=== PATIENT | female | born 1980 | race Two or more races ===

== ENCOUNTER 2017-02-05 11:03 | Emergency (ER) | payer OTHER ==
[2017-02-05 11:44] VITALS: TEMP 98.9; BMI 28.2
[2017-02-05] MEDS ORDERED: KETOROLAC TROMETHAMINE 30 MG/1 ML VIAL IVPUSH ONE (12:02)
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
[2017-02-05] MEDS ORDERED: KETOROLAC TROMETHAMINE 30 MG/1 ML VIAL ONE (12:16)
[2017-02-05 12:34] LABS: BASOPHIL 1.2 % (0-2.0); EOSINOPHIL 1.4 % (0-4.5); MCH 28.7 pg (25.7-33.7); MCHC 33.3 g/dl (32.0-36.0); MEAN CELL VOLUME 86.3 fl (80-96); MEAN PLT VOLUME 7.7 fl (7.5-11.1); NEUTROPHILS 73.5 % (42.8-82.8); PLATELET COUNT 190 K/MM3 (134-434); RDW 14.2 % (11.6-15.6); WHITE BLOOD COUNT 7.1 K/mm3 (4.0-10.0)
[2017-02-05 14:15] LABS: ALBUMIN 3.9 g/dl (3.4-5.0); ANION GAP 12 (8-16); CALCIUM 8.3 mg/dL (8.5-10.1); CO2 26 mmol/L (21-32); COCKROFT - GAULT 202.4445; CREATININE 0.6 mg/dL (0.55-1.02); GLUCOSE,RANDOM 68 mg/dL (74-106); SGOT/AST 16 U/L (15-37); SGPT/ALT 17 U/L (12-78)
[2017-02-05 14:17] LABS: ALK PHOS 57 U/L (45-117); BILIRUBIN,TOTAL 0.7 mg/dL (0.2-1.0); TOT PROT 6.5 g/dl (6.4-8.2)
[2017-02-05] MEDS ORDERED: OSELTAMIVIR PHOSPHATE 6 MG/1 ML - 60ML BOTTLE PO ONE (15:23)
[2017-02-05 16:35] VITALS: BP 121/66; PULSE 84
== END 2017-02-05 16:35 | disposition home or self-care (01) ==
LOC: JER 11:03
PROC: 3E0233Z Introduction of Anti-inflammatory into Muscle, Percutaneous Approach (ICD-10-PCS; principal; 2017-02-05)
DX: S00.83XA Contusion of other part of head, initial encounter (principal); S20.212A Contusion of left front wall of thorax, initial encounter; S80.02XA Contusion of left knee, initial encounter; S80.01XA Contusion of right knee, initial encounter; Y04.2XXA Assault by strike against or bumped into by another person, initial encounter; Y93.89 Activity, other specified; Y92.038 Other place in apartment as the place of occurrence of the external cause; Y07.03 Male partner, perpetrator of maltreatment and neglect; I10 Essential (primary) hypertension; K21.9 Gastro-esophageal reflux disease without esophagitis
CPT/HCPCS: 36415; 71020-TC; 71260-TC; 74177-TC; 80053; 84703; 85025; 96374; 99284-25; G9019

== ENCOUNTER 2018-09-19 03:42 | Emergency (ER) | payer OTHER ==
[2018-09-19 04:06] VITALS: TEMP 98.1; BMI 30.9
[2018-09-19] MEDS ORDERED: SODIUM CHLORIDE 1,000 ML IV STA (04:08)
--- NOTE | 2018-09-19 04:08 | PDOC ---
History of Present Illness - General Chief Complaint: Pain, Acute Stated Complaint: ABD PAIN Time Seen by Provider: 09/19/18 03:50 History Source: Patient Exam Limitations: No Limitations - History of Present Illness Travel History: No Initial Comments: 09/19/18 06:55 Best Contact: PCP:DR. Sanjay Busch Pmhx:HTN Pshx: 2013: Gastric sleeve, Hiatal hernia repair x5/latest in Jul 2018 Allergies: Lisinopril/rash FH:0 Social Hx: Cigarettes/ 0 Alcohol/ 0 Drugs/0 LMP:08/30/2018 38-year-old female with a history of morbid obesity who underwent gastric sleeve 5 years ago and had 5 attempts of hiatal hernia repair/latest one July 2018 presents to the ER complaining of global abdominal discomfort 3 days with some nausea. Patient states her last bowel movement was 24 hours ago and she believes it was nonbilious/nonbloody diarrhea. Patient states she's been anorexic 2 days because she is afraid the pain will increase after eating. The pain is described as 9/10 sharp nonradiating intermittent discomfort which is alleviated minimally when she self massages her abdomen. The pain is exacerbated on movement and touch. Patient denies fever, chills, headache, dizziness, lightheadedness, facial pains, neck pain/stiffness, back pains, chest pain, shortness of breath, flank pains, urinary symptoms: Frequency /urgency/hesitancy, hematuria, extremity numbness or tingling sensation. Past History - Past Medical History Allergies/Adverse Reactions: Allergies Allergy/AdvReac Type Severity Reaction Status Date / Time lisinopril Allergy Hives Verified 09/19/18 06:20 Home Medications: Ambulatory Orders Pantoprazole Sodium [Protonix -] 40 mg PO DAILY 01/31/14 Anemia: No Asthma: No Cancer: No Cardiac Disorders: No CVA: No COPD: No CHF: No Dementia: No Diabetes: No GI Disorders: Yes (gerd) Disorders: No HTN: Yes Hypercholesterolemia: No Liver Disease: No Seizures: No Thyroid Disease: No - Surgical History Abdominal Surgery: Yes (gastric sleeve) Cholecystectomy: Yes - Reproductive History Cervical CA: Yes Ectopic : Yes Polycystic Ovaries: Yes - Suicide/Smoking/Psychosocial Hx Smoking History: Current some day smoker Have you smoked in the past 12 months: No Number of Cigarettes Smoked Daily: 2 Information on smoking cessation initiated: No Hx Alcohol Use: Yes Drug/Substance Use Hx: No Substance Use Type: None Hx Substance Use Treatment: No Review of Systems - Review of Systems Able to Perform ROS?: Yes Comments:: 09/19/18 06:58 CONSTITUTIONAL: Absent: fever, chills, diaphoresis, generalized weakness, malaise, loss of appetite HEENT: Absent: rhinorrhea, nasal congestion, throat pain, throat swelling, difficulty swallowing, mouth swelling, ear pain, eye pain, visual Changes CARDIOVASCULAR: Absent: chest pain, loss of consciousness, palpitations, irregular heart rate, peripheral edema RESPIRATORY: Absent: cough, shortness of breath, dyspnea with exertion, orthopnea, wheezing, stridor, hemoptysis GASTROINTESTINAL: +Diffuse abd pain Absent: abdominal distension, nausea, vomiting, diarrhea, constipation, melena , hematochezia GENITOURINARY: Absent: dysuria, frequency, urgency, hesitancy, hematuria, flank pain, genital pain MUSCULOSKELETAL: Absent: myalgia, arthralgia, joint swelling SKIN: Absent: rash, itching, pallor HEMATOLOGIC/IMMUNOLOGIC: Absent: easy bleeding, easy bruising, lymphadenopathy, frequent infections ENDOCRINE: Absent: unexplained weight gain, unexplained weight loss, heat intolerance, cold intolerance NEUROLOGIC: Absent: headache, focal weakness or paresthesias, dizziness, unsteady gait, seizure, mental status changes, bladder or bowel incontinence Is the patient limited Vietnamese proficient: No *Physical Exam - Vital Signs Last Vital Signs Temp Pulse Resp BP Pulse Ox 98.1 F 112 H 18 148/98 100 09/19/18 04:01 09/19/18 04:01 09/19/18 04:01 09/19/18 04:01 09/19/18 04:01 - Physical Exam Comments: 09/19/18 06:59 GENERAL: Well developed, well nourished. Awake and alert. No acute distress. HEENT: Normocephalic, atraumatic. PERRLA, EOMI. No conjunctival pallor. Sclera are non- icteric. Moist mucous membranes. Oropharynx is clear. NECK: Supple. Full ROM. No JVD. Carotid pulses 2+ and symmetric, without bruits. No thyromegaly. No lymphadenopathy. CARDIOVASCULAR: Regular rate and rhythm. No murmurs, rubs, or gallops. Distal pulses are 2+ and symmetric. PULMONARY: No evidence of respiratory distress. Lungs clear to auscultation bilaterally. No wheezing, rales or rhonchi. ABDOMINAL: Diffuse abd pain on palp Soft. Non-distended. No rebound or guarding. No organomegaly. Normoactive bowel sounds. MUSCULOSKELETAL Normal range of motion at all joints. No bony deformities or tenderness. No CVA tenderness. EXTREMITIES: No cyanosis. No clubbing. No edema. No calf tenderness. SKIN: Warm and dry. Normal capillary refill. No rashes. No jaundice. Moderate Sedation - Procedure Monitoring Vital Signs: Procedure Monitoring Vital Signs Temperature 98.1 F 09/19/18 04:01 Pulse Rate 112 H 09/19/18 04:01 Respiratory Rate 18 09/19/18 04:01 Blood Pressure 148/98 09/19/18 04:01 O2 Sat by Pulse Oximetry (%) 100 09/19/18 04:01 ED Treatment Course - LABORATORY CBC & Chemistry Diagram: 09/19/18 04:04 09/19/18 04:04 - RADIOLOGY Radiograph Interpretation: 09/19/18 07:00 Ct abd/pelvis po/iv contrast: Progress Note - Progress Note Progress Note: 0600hrs: awaiting CT scan 0658hrs: still awaiting Ct scan 0700hrs: Signed out to DEVON Zarco *DC/Admit/Observation/Transfer Diagnosis at time of Disposition: Abdominal pain Qualifiers: Abdominal location: generalized Qualified Code(s): R10.84 - Generalized abdominal pain - Discharge Dispostion Disposition: HOME Condition at time of disposition: Fair - Referrals Referrals: Jordan Strickland MD [Staff Physician] - - Patient Instructions Printed Discharge Instructions: DI for Abdominal Pain-Adult Additional Instructions: You were evaluated for your abdominal pain today Your CT scan and lab work was normal today Eat a bland diet and avoid dairy until your symptoms resolve A heating pad on your stomach may help with the gas Follow up with your primary care doctor and GI doctor this week Return to the ED for worsening pain, fever, vomiting, or if you have any changes in your symptoms - Post Discharge Activity Forms/Work/School Notes: Back to Work
[2018-09-19 04:27] LABS: EOS % 4.2 % (0-4.5); HEMATOCRIT 37.5 % (32.4-45.2); HEMOGLOBIN 13.1 GM/dL (10.7-15.3); LYMPH % 41.5 % (8-40); MCH 29.3 pg (25.7-33.7); MEAN CELL VOLUME 83.9 fl (80-96); MEAN PLT VOLUME 7.4 fl (7.5-11.1); MONO % 4.2 % (3.8-10.2); NEUT % 49.1 % (42.8-82.8); PLATELET COUNT 228 K/MM3 (134-434); RBC 4.47 M/mm3 (3.60-5.2); RDW 14.5 % (11.6-15.6)
[2018-09-19 04:30] LABS: URINE APPEARANCE CLEAR; URINE BILIRUBIN NEGATIVE (<2.0 mg/dL); URINE COLOR COLORLESS; URINE GLUCOSE (UA) NEGATIVE (NEGATIVE); URINE KETONE NEGATIVE (NEGATIVE); URINE LEUK ESTERASE NEGATIVE (NEGATIVE); URINE NITRITE NEGATIVE (NEGATIVE); URINE PROTEIN NEGATIVE (NEGATIVE); URINE UROBILINOGEN NEGATIVE mg/dL (0.2-1.0)
[2018-09-19 04:31] LABS: HCG,QUALITATIVE URINE Negative
[2018-09-19] MEDS ORDERED: ONDANSETRON 4 MG/2 ML VIAL IVPUSH ONE (04:35)
[2018-09-19] MEDS ORDERED: ONDANSETRON 4 MG/2 ML VIAL ONE (04:39)
[2018-09-19 04:50] LABS: ALBUMIN 3.7 g/dl (3.4-5.0); ALK PHOS 80 U/L (45-117); ANION GAP 9 MMOL/L (8-16); BILIRUBIN,TOTAL 0.5 mg/dL (0.2-1); BLOOD UREA NITROGEN 5 mg/dL (7-18); CALCIUM 8.8 mg/dL (8.5-10.1); CHLORIDE 108 mmol/L (98-107); CO2 26 mmol/L (21-32); CREATININE 0.6 mg/dL (0.55-1.3); GLUCOSE,RANDOM 100 mg/dL (74-106); LIPASE 205 U/L (73-393); POTASSIUM 3.7 mmol/L (3.5-5.1); SGOT/AST 14 U/L (15-37); SGPT/ALT 16 U/L (13-61); SODIUM 143 mmol/L (136-145); TOT PROT 7.2 g/dl (6.4-8.2)
--- NOTE | 2018-09-19 07:12 | PDOC ---
*Physical Exam - Vital Signs Last Vital Signs Temp Pulse Resp BP Pulse Ox 98.1 F 112 H 18 148/98 100 09/19/18 04:01 09/19/18 04:01 09/19/18 04:01 09/19/18 04:01 09/19/18 04:01 - Physical Exam General Appearance: Yes: Nourished, Appropriately Dressed. No: Apparent Distress Respiratory/Chest: positive: Lungs Clear, Normal Breath Sounds. negative: Respiratory Distress, Accessory Muscle Use, Rhonchi, Stridor, Wheezing Cardiovascular: positive: Regular Rhythm, Regular Rate, S1, S2 (present). negative: Murmur Gastrointestinal/Abdominal: positive: Normal Bowel Sounds, Flat, Soft. negative : Tender ED Treatment Course - LABORATORY CBC & Chemistry Diagram: 09/19/18 04:04 09/19/18 04:04 - ADDITIONAL ORDERS Additional order review: Laboratory Results 09/19/18 09/19/18 04:04 04:04 Sodium 143 Potassium 3.7 Chloride 108 H Carbon Dioxide 26 Anion Gap 9 BUN 5 L Creatinine 0.6 Creat Clearance w eGFR > 60 Random Glucose 100 Calcium 8.8 Total Bilirubin 0.5 AST 14 L ALT 16 Alkaline Phosphatase 80 Total Protein 7.2 Albumin 3.7 Lipase 205 Urine Color Colorless Urine Appearance Clear Urine pH 7.0 Ur Specific [place] 1.002 L Urine Protein Negative Urine Glucose (UA) Negative Urine Ketones Negative Urine Blood Negative Urine Nitrite Negative Urine Bilirubin Negative Urine Urobilinogen Negative Ur Leukocyte Esterase Negative Urine HCG, Qual Negative 09/19/18 04:04 RBC 4.47 MCV 83.9 MCHC 35.0 RDW 14.5 MPV 7.4 L Neutrophils % 49.1 D Lymphocytes % 41.5 H D Monocytes % 4.2 Eosinophils % 4.2 D Basophils % 1.0 - Medications Given in the ED: ED Medications Discontinued Medications Generic Name Dose Route Start Last Admin Trade Name Freq PRN Reason Stop Dose Admin Sodium Chloride 1,000 mls @ 1,000 mls/hr 09/19/18 04:08 09/19/18 04:47 Normal Saline - IV 09/19/18 05:07 1,000 mls/hr ASDIR STA Administration Ondansetron HCl 4 mg 09/19/18 04:35 09/19/18 04:48 Zofran Injection IVPUSH 09/19/18 04:36 4 mg ONCE ONE Administration Medical Decision Making - Medical Decision Making 09/19/18 13:41 Delay with dc because of imaging prosthodontist/radiology read. Read shows a small umbilical hernia in the mesh from her previous surgery, however no acute patholoy. Pt reports that her symptoms have improved since being in the ED. Repeat abdominal exam with less pain than previous exam. No pain over the umbilicus. Probably gas. Will dc home at this time. Strict return precautions given. Pt understands all dc instructions and questions were answered I discussed the physical exam findings, ancillary test results and final diagnoses with the patient. I answered all of the patient's questions. The patient was satisfied with the care received and felt comfortable with the discharge plan and treatment plan. The Patient agrees to follow up with the primary care physician/specialist within 24-72 hours. Return precautions were given. *DC/Admit/Observation/Transfer Diagnosis at time of Disposition: Abdominal pain Qualifiers: Abdominal location: generalized Qualified Code(s): R10.84 - Generalized abdominal pain - Discharge Dispostion Disposition: HOME Condition at time of disposition: Fair Decision to Admit order: No - Referrals Referrals: Jordan Strickland MD [Staff Physician] - - Patient Instructions Printed Discharge Instructions: DI for Abdominal Pain-Adult Additional Instructions: You were evaluated for your abdominal pain today Your CT scan and lab work was normal today Eat a bland diet and avoid dairy until your symptoms resolve A heating pad on your stomach may help with the gas Follow up with your primary care doctor and GI doctor this week Return to the ED for worsening pain, fever, vomiting, or if you have any changes in your symptoms - Post Discharge Activity Forms/Work/School Notes: Back to Work
[2018-09-19] MEDS ORDERED: FAMOTIDINE 20 MG/50 ML IVPB 20 MG/50 ML MG IVPB ONE ×2 (10:36→11:00)
[2018-09-19 14:20] VITALS: BP 133/90; PULSE 72
== END 2018-09-19 14:20 | disposition home or self-care (01) ==
LOC: JER 03:42
PROC: 3E033GC Introduction of Other Therapeutic Substance into Peripheral Vein, Percutaneous Approach (ICD-10-PCS; principal; 2018-09-19)
PROC: 3E0337Z Introduction of Electrolytic and Water Balance Substance into Peripheral Vein, Percutaneous Approach (ICD-10-PCS; 2018-09-19)
DX: R10.84 Generalized abdominal pain (principal); Z98.84 Bariatric surgery status; F17.210 Nicotine dependence, cigarettes, uncomplicated; I10 Essential (primary) hypertension; K21.9 Gastro-esophageal reflux disease without esophagitis
CPT/HCPCS: 36415; 74177-TC; 80053; 81003; 83690; 84703; 85025; 99282-25; J7030

== ENCOUNTER 2019-06-19 08:35 | Emergency (ER) | payer OTHER ==
[2019-06-19 08:42] VITALS: BMI 31.6
--- NOTE | 2019-06-19 09:22 | PDOC ---
History of Present Illness - General Chief Complaint: Shoulder Dislocation Stated Complaint: FALL Time Seen by Provider: 06/19/19 08:44 History Source: Patient Exam Limitations: No Limitations - History of Present Illness Initial Comments: 06/19/19 10:00 38-year-old female presents the ED with status post fall last night presents to ED with left shoulder pain upon awakening this morning. Patient states unsure how she fell because she was intoxicated but denies previous injury to affected area or LOC . Patient states took nothing for the pain and decided to come to the ER for further evaluation. Is this a multiple visit Asthma Patient?: No Timing/Duration: 4-6 hours Severity: mild Associated Symptoms: reports: denies symptoms Past History - Travel Traveled outside of the country in the last 30 days: No Close contact w/someone who was outside of country & ill: No - Past Medical History Allergies/Adverse Reactions: Allergies Allergy/AdvReac Type Severity Reaction Status Date / Time lisinopril Allergy Hives Verified 06/19/19 08:43 Home Medications: Ambulatory Orders Pantoprazole Sodium [Protonix -] 40 mg PO DAILY 01/31/14 Cyclobenzaprine HCl [Flexeril -] 5 mg PO TID PRN #12 tablet 06/19/19 Oxycodone HCl/Acetaminophen [Percocet 5-325 mg Tablet] 1 - 2 tab PO Q6H PRN #12 tab MDD 4 06/19/19 Anemia: No Asthma: No Cancer: No Cardiac Disorders: No CVA: No COPD: No CHF: No Dementia: No Diabetes: No GI Disorders: Yes (gerd) Disorders: No HTN: Yes Hypercholesterolemia: No Liver Disease: No Seizures: No Thyroid Disease: No - Surgical History Abdominal Surgery: Yes (gastric sleeve) Cholecystectomy: Yes - Reproductive History Cervical CA: Yes Ectopic : Yes Polycystic Ovaries: Yes - Immunization History Immunization Up to Date: Yes - Suicide/Smoking/Psychosocial Hx Smoking History: Current every day smoker Have you smoked in the past 12 months: No Number of Cigarettes Smoked Daily: 1 Information on smoking cessation initiated: No Hx Alcohol Use: Yes Drug/Substance Use Hx: No Substance Use Type: None Hx Substance Use Treatment: No Patient Lives Alone: No Lives with/in: spouse/SO Review of Systems - Review of Systems Able to Perform ROS?: Yes Constitutional: No: Symptoms Reported HEENTM: No: Symptoms Reported Respiratory: No: Symptoms reported Cardiac (ROS): No: Symptoms Reported ABD/GI: No: Symptoms Reported Musculoskeletal: Yes: Joint Pain (left shoulder), Muscle Pain (left neck/upper back) Integumentary: No: Symptoms Reported Neurological: No: Symptoms reported, Numbness, Tingling, Weakness, Dizziness Endocrine: No: Symptoms Reported Hematologic/Lymphatic: No: Symptoms Reported *Physical Exam - Vital Signs Last Vital Signs Temp Pulse Resp BP Pulse Ox 98.4 F 92 H 16 131/108 H 99 06/19/19 08:39 06/19/19 08:39 06/19/19 08:39 06/19/19 08:39 06/19/19 08:39 - Physical Exam General Appearance: Yes: Nourished, Appropriately Dressed, Alcohol on Breath. No: Apparent Distress HEENT: positive: EFRA Neck: positive: Supple, Tender lateral (rt trapezius) Respiratory/Chest: positive: Lungs Clear, Normal Breath Sounds. negative: Chest Tender, Respiratory Distress, Accessory Muscle Use Cardiovascular: positive: Regular Rhythm, Regular Rate. negative: Murmur Gastrointestinal/Abdominal: positive: Soft. negative: Tenderness Musculoskeletal: negative: CVA Tenderness, Vertebral Tenderness Extremity: positive: Normal Inspection, Tender (genaralized over left shoulder/ trapezius). negative: Normal Range of Motion Integumentary: positive: Normal Color, Warm, Moist Neurologic: positive: Motor Strength 5/5 (left hand grasp) ED Treatment Course - ADDITIONAL ORDERS Additional order review: Laboratory Results 06/19/19 08:55 Urine HCG, Qual Negative - RADIOLOGY Radiology Studies Ordered: Category Date Time Status SHOULDER-LEFT [RAD] Stat Radiology 06/19/19 08:44 Ordered Medical Decision Making - Medical Decision Making 06/19/19 09:22 All left shoulder pain after falling at around 2 AM this morning patient is intoxicated and went to bed shortly after falling but awoke with discomfort this a.m. and inability to move left arm Exam: Patient with generalized tenderness over the left shoulder and left trapezius Plan: Urine , morphine and shoulder x-ray ordered 06/19/19 09:43 Laboratory Tests 06/19/19 08:55 Urine HCG, Qual Negative 06/19/19 11:06 Shoulder x-ray shows a light bulb appearance to the humeral head which could indicate a dislocation. Because of limited motion limitations, further imaging was CT is suggested. 06/19/19 12:07 Patient otherwise comfortable. Sling in place. Awaiting CT results 06/19/19 12:20 CT of upper extremity shows no dislocation or fracture noted. *DC/Admit/Observation/Transfer Diagnosis at time of Disposition: Shoulder injury - Discharge Dispostion Disposition: HOME Condition at time of disposition: Improved - Prescriptions Prescriptions: Cyclobenzaprine HCl [Flexeril -] 5 mg PO TID PRN #12 tablet PRN Reason: Back Pain Oxycodone HCl/Acetaminophen [Percocet 5-325 mg Tablet] 1 - 2 tab PO Q6H PRN #12 tab MDD 4 PRN Reason: Pain - Referrals Referrals: Sanjay Busch MD [Primary Care Provider] - Gage Chong MD [Staff Physician] - - Patient Instructions Printed Discharge Instructions: How to Use a Sling, DI for Shoulder Pain Additional Instructions: Please wear your sling during the day and remove at night. Apply ice to left shoulder to affected area x 72 hours . Take medication as prescribed and avoid operating heavy machinery. - Post Discharge Activity
[2019-06-19] MEDS ORDERED: morphine SULFATE 4 MG/ML VIAL ONE (09:27)
[2019-06-19] MEDS ORDERED: morphine CARPU-JECT 2 MG/1 ML DISP.SYRIN IM ONE (09:55)
[2019-06-19 13:02] VITALS: BP 130/84; PULSE 79; TEMP 98.2
== END 2019-06-19 13:00 | disposition home or self-care (01) ==
LOC: JER 08:35
PROC: 3E023NZ Introduction of Analgesics, Hypnotics, Sedatives into Muscle, Percutaneous Approach (ICD-10-PCS; principal; 2019-06-19)
DX: S49.82XA Other specified injuries of left shoulder and upper arm, initial encounter (principal); W18.39XA Other fall on same level, initial encounter; Y93.89 Activity, other specified; Y92.89 Other specified places as the place of occurrence of the external cause; Y99.8 Other external cause status; F10.120 Alcohol abuse with intoxication, uncomplicated; I10 Essential (primary) hypertension; K21.9 Gastro-esophageal reflux disease without esophagitis; Y90.9 Presence of alcohol in blood, level not specified
CPT/HCPCS: 73030-TC-LT-FY; 73200-TC-RT; 84703; 96372; 99282-25

== ENCOUNTER 2023-08-11 19:03 | Emergency (ER) | payer OTHER ==
[2023-08-11 19:30] VITALS: BP 134/83; PULSE 74; RESP 18; TEMP 98.1; BMI 29.7
[2023-08-11] MEDS ORDERED: ACETAMINOPHEN 500 MG TABLET (FP) PO ONE (20:34)
[2023-08-11] MEDS ORDERED: IBUPROFEN 600 MG TABLET (FP) PO ONE ×2 (21:08→21:09)
[2023-08-11] MEDS ORDERED: LIDOCAINE 5% TOPICAL PATCH TP ONE (21:08)
[2023-08-11] MEDS ORDERED: ACETAMINOPHEN 500 MG TABLET (FP) ONE (21:09)
[2023-08-11] MEDS ORDERED: LIDOCAINE 4% PATCH TP ONE (21:09)
[2023-08-11] MEDS ORDERED: LIDOCAINE PATCH REMOVAL MC ONE (22:00)
== END 2023-08-11 22:21 | disposition home or self-care (01) ==
LOC: JER 19:03
DX: R22.41 Localized swelling, mass and lump, right lower limb (principal); M79.661 Pain in right lower leg; M54.50 Low back pain, unspecified
CPT/HCPCS: 73502-TC-RT-FY; 73552-TC-RT-FY; 73562-TC-RT-FY; 93971-TC; 99284-25

== ENCOUNTER 2024-03-10 16:13 | Emergency (ER) | payer OTHER ==
[2024-03-10 17:41] VITALS: BP 188/68; PULSE 81; RESP 16; TEMP 97.9; BMI 29.4
== END 2024-03-10 19:08 | disposition left against medical advice (07) ==
LOC: JER 16:13
DX: M54.9 Dorsalgia, unspecified (principal)
CPT/HCPCS: 99283-25